=== PATIENT | male | born 1985 | race Caucasian/White ===

== ENCOUNTER 2019-01-11 09:27 | Emergency (ER) | payer OTHER ==
[2019-01-11 10:31] LABS: Carbamazepine-Tegretol 8.2 ug/mL (4.0-12.0)
[2019-01-11] MEDS ORDERED: carBAMazepine 200 MG TAB PO SCH (11:00)
== END 2019-01-11 11:11 ==
LOC: ERS 09:27
DX: G40.909 Epilepsy, unspecified, not intractable, without status epilepticus (principal); F41.0 Panic disorder [episodic paroxysmal anxiety]; F32.9 Major depressive disorder, single episode, unspecified; F20.9 Schizophrenia, unspecified; F17.210 Nicotine dependence, cigarettes, uncomplicated; Z79.899 Other long term (current) drug therapy
CPT/HCPCS: 36415; 80156; 99284